=== PATIENT | female | born 1940 | race Caucasian/White ===

== ENCOUNTER 2020-05-18 09:46 | Outpatient (REF) | payer OTHER, SELFPAY ==
--- NOTE | 2020-05-18 11:41 | MHC.AU.P13 ---
Hearing Instrument Follow-Up Date of Visit: 05/18/20 Follow-Up Summary: Patient was seen for audiological evaluation on 03/25/2020. She had significant cerumen impaction, which likely impacted hearing test results. It was advised that cerumen removal be performed by a physician, as patient is at high risk of complications. A hearing re-test and hearing aid evaluation were to be rescheduled after cerumen removal. Patient arrived today to attempt hearing re-check. Patient reports that the cerumen has not yet been removed. She has tried calling to arrange cerumen removal herself as well, but has not heard back. Otoscopy performed- the cerumen in the right ear is impacted and hard. There is partially occluding cerumen in the left ear. I am concerned, due to the nature of the impaction, that she would be at high risk of bleeding during cerumen removal; therefore, we cannot safely perform cerumen removal on her at our clinic. We would not be able to address any complications related to her diabetes or use of blood thinners. It is important that the cerumen is removed by a physician who could address complications as they arise. We cannot re-check hearing or discuss hearing aids until the cerumen is removed. Recommendations: Cerumen removal by a physician. After complete cerumen removal, [facility] can arrange for patient to return for an audiological re-evaluation/Hearing Aid Evaluation. Diagnosis Code(s): Primary Diagnosis: H61.21 Impacted Cerumen, Right Ear Signature: Provider: Jane Medellin, [facility]
== END 2020-05-18 09:47 | disposition home or self-care (01) ==
LOC: HO.SH 09:46
PROVIDERS: Visit Provider Internal Medicine Rheumatology
DX: Z13.89 Encounter for screening for other disorder (principal)
CPT/HCPCS: 92700

== ENCOUNTER 2020-06-03 09:27 | Outpatient (REF) | payer OTHER, SELFPAY ==
--- NOTE | 2020-06-06 08:17 | MHC.AU.P13 ---
Adult Audiological Evaluation Date of Visit: 06/03/20 Reason for Appointment: Audiologic re-evaluation following cerumen removal Previous Hearing Test Results: 03/25/2020 Right ear - Moderate to profound mixed hearing loss. Left ear - Moderately-severe to severe mixed hearing loss. Medical History: Medical History: Cancer Diabetes Heart Problems High Blood Pressure COPD Hearing Instrument History- Right Ear: [address] [employer] Installer: Oticon Model: Samanta 2 Pro [id number] with standard shell earmold Serial Number: [id number] Battery Size: 312 Dispensed By: [facility] Date of Fittin Hearing Instrument History- Left Ear: [address] Installer: Oticon Model: Aid Lost Dispensed By: [facility] Date of Fittin Otoscopy: Right Ear: Unremarkable Left Ear: Small amount of non-occluding cerumen Tympanometry: Right Ear: Normal Middle Ear System (Type A) Left Ear: Normal Middle Ear System (Type A) Hearing Evaluation: Transducer(s) Used: Insert Earphones Bone Conduction Method: Conventional Audiometry Stimuli Used: Pure Tones Right Ear: Description of Hearing: Moderate to moderately-severe sensorineural hearing loss Left Ear: Description of Hearing: Moderately-severe to severe mixed hearing loss Speech Recognition Threshold (SRT): Method Used: Monitored Live Voice Stimuli Used: Spondee Words Right Ear: 55 Left Ear: 60 Word Discrimination: Method: Recorded Lists Word Lists Used: NU-6 Right Ear: 96% at 95 dB HL Left Ear: 76% at 100 dB HL Most Comfortable Level (MCL): Right Ear: 95 dB HL Left Ear: 100 dB HL Comparison: Compared to the most recent evaluation: Thresholds have improved bilaterally. Recommendations: Recommendations: Audiological re-evaluation in one year. Trial with amplification is recommended. Medical clearance from a physician is required before fitting. Hearing Aid Fitting will be scheduled when all materials arrive. See Hearing Aid Evaluation report for more information. Hearing aid(s) will be ordered after approval is received. Diagnosis: Primary Diagnosis: H90.3 Bilateral Sensorineural Hearing Loss Services Performed: Services Performed: Comprehensive Audiological Evaluation (CPT 01149) Tympanometry (CPT 97140) Signature: Provider: Jane Peterson, [facility]
--- NOTE | 2020-06-06 08:29 | MHC.AU.P13 ---
Hearing Aid Evaluation- Binaural Date of Visit: 06/03/20 Stripper Cutter Machine Used: Not Applicable Description of Hearing: Right ear - Moderate to moderately-severe sensorineural hearing loss. Left ear - Moderately-severe to severe mixed hearing loss Summary: Discussed appropriate styles of hearing aid for the hearing loss. Patient has been having difficulty manipulating the [id number] hearing aids and would like an easier style for insertion and care. Impressions taken of both ears without complication and in HOLD drawer. Hearing Instrument Selection: Right Ear: Flat Folder: [place] Model: Fabian 1600 ITC-R with pull cord Battery Size: Rechargeable Color: pink Left Ear: Flat Folder: Kali Model: Fabian 1600 ITC-R with pull cord Battery Size: Rechargeable Color: [place] Recommendations: Recommendations: Fitting will be scheduled when all materials have arrived. Prior authorization will be sent to patient's insurance. A signed medical clearance form is required from a physician. Diagnosis Code(s): Primary Diagnosis: H90.3 Bilateral Sensorineural Hearing Loss Services Performed: Hearing Aid Evaluation and Earmold: Hearing Aid Evaluation- Binaural Earmold Impressions - 2 Signature: Provider: Jane Peterson, [facility]
== END 2020-06-03 09:28 | disposition home or self-care (01) ==
LOC: HO.HAP 09:27
PROVIDERS: PCP Internal Medicine Rheumatology; Referring Provider Internal Medicine Rheumatology; Visit Provider Internal Medicine Rheumatology
DX: Z46.1 Encounter for fitting and adjustment of hearing aid (principal)
CPT/HCPCS: 92557; 92567; 92591; V5275

== ENCOUNTER 2022-09-24 20:15 | Emergency (ER) | payer OTHER, SELFPAY ==
--- NOTE | ~2022-09-24 | XR_ITS ---
EXAMINATION: XR ANKLE, RIGHT CLINICAL INFORMATION: Pain COMPARISON: None TECHNIQUE: AP, lateral, and mortise views of the right ankle. FINDINGS: Osseous alignment is anatomic. No acute fracture is seen. Osteopenia is noted. There is mild soft tissue swelling at the ankle. Vascular calcification is present. XR/XR ankle RT min 3V IMPRESSION: No acute osseous findings. Mild soft tissue swelling.
[2022-09-24 20:28] VITALS: BP 126/82; PULSE 88; O2SAT 99
[2022-09-24 20:43] VITALS: PULSE 68; RESP 24; TEMP 36.4; O2SAT 100; BMI 34.3
[2022-09-24 21:09] VITALS: BP 101/48; PULSE 67; RESP 16; TEMP 36.5; O2SAT 99
--- NOTE | 2022-09-24 23:30 | ED.FALL ---
HPI - Fall General Chief Complaint: Fall Stated Complaint: Fall,Right Ankle Pain Time Seen by Provider: 09/24/22 22:44 Source: patient Mode of arrival: EMS History of Present Illness HPI Narrative: 81-year-old female who is brought in by EMS from long-term facility where she states she slid out of bed onto her knees and denies any head strike or loss of consciousness. Patient denies any current knee pain but does take Eliquis. She has complaints about her right ankle and knows that there is a wound there and states she has not walked on that ankle for almost 4 months now. Related Data Allergies Allergy/AdvReac Type Severity Reaction Status Date / Time No Known Allergies Allergy Verified 09/24/22 20:47 Review of Systems Review of Systems: Pertinent positives and negatives as stated in [facility] Past Medical History Source: nursing notes reviewed Social History Social History Alcohol intake: never Smoked in Last 30 Days: No Use of substances other than those prescribed or required for medical reasons: No Advance Directives: No Advance Directives Information Provided: No Physical Exam Vital Signs: Vital Signs: Last Vital Signs Temp 97.7 F 09/24/22 21:09 Pulse 67 09/24/22 21:09 Resp 16 09/24/22 21:09 BP 101/48 L 09/24/22 21:09 Pulse Ox 99 09/24/22 21:09 O2 Del Method 09/24/22 21:09 Oxygen Flow Rate 2 09/24/22 20:43 BMI result Body Mass Index 34.3 VITAL SIGNS: Reviewed. GENERAL: Well developed, well nourished, in no acute distress. HEAD: Normocephalic/atraumatic EYES: PERRLA, EOMI LUNGS: Normal breath sounds. No adventitious sounds or accessory muscle use. SpO2<99> CARDIOVASCULAR: Regular rate and rhythm without noted murmurs ABDOMEN: Soft, non-tender, non-distended with bowel sounds. EXTREMITIES: No cyanosis, clubbing or edema; RIGHT ANKLE: There is no swelling or deformity, foot is warm good capillary refill, palpable DP/PT and noted dressing to the heel area that is clean dry and intact consistent with patient's history of pressure ulcer. NEUROLOGIC: Alert and oriented x 4. Strength and sensation to light touch were grossly intact x 4. Medical Decision Making Medical Decision Making MDM Narrative: 81-year-old female with a slip out of bed onto her knees and no deformities of those knees and denies any current knee pain. The right ankle appears to be chronic in nature no evidence of cellulitis or ischemic changes. She has obvious pressure wound to that area, will image to ensure no acute injury. Otherwise, patient will be discharged back to the facility in stable condition. Review the x-ray and there are no acute bony abnormalities. Again, this pain is likely associated with her underlying pressure ulcer. There is no evidence of cellulitis. Differential Diagnosis Please see the discussion above Radiology Impression Radiologist Impression: My interpretation is in agreement with radiology's impression of the imaging study. Discharge Plan Discharge Clinical Impression: Ankle pain, right Patient Disposition: Xfer [facility] Instructions: Arthralgia (ED) Additional Instructions: 1. Resume all home medications as prescribed. 2. Recommend [id number] Tylenol/ibuprofen as needed for pain control. 3. Follow-up with your primary care provider in the next 2-3 days. Return to the ER for any worsening symptoms.
[2022-09-25 00:50] VITALS: BP 116/51; PULSE 64; RESP 17; TEMP 36.4; O2SAT 99
== END 2022-09-25 01:37 | disposition skilled nursing facility (03) ==
PROVIDERS: Emergency Provider Student in an Organized Health Care Education/Training Program
DX: M25.571 Pain in right ankle and joints of right foot (principal); Z79.01 Long term (current) use of anticoagulants
CPT/HCPCS: 73610; 99283; 99284